=== PATIENT | female | born 1990 | race Caucasian/White ===

== ENCOUNTER 2021-09-02 13:49 | Outpatient (CLI) | payer OTHER, SELFPAY ==
--- NOTE | 2021-09-02 14:00 | CRLHL7_ITS ---
For Patients: As a result of the Century Cures Act, medical imaging exams and procedure reports are released immediately into your electronic medical record. You may view this report before your referring provider. If you have questions, please contact your health care provider. INDICATION: 2nd trimester anatomical survey. TECHNIQUE: Ultrasound OB pelvis transabdominal. Real-time rico-scale imaging of the fetus was performed as well as color Doppler and spectral Doppler analysis of the umbilical artery. COMPARISON: None. FINDINGS: Sonographic imaging demonstrates a single living intrauterine gestation. Fetus demonstrates a regular cardiac rate of 150 beats per minute. Fetus has a breech orientation. The placenta lies posterior. Tip of the placenta is approximately 3.7 cm from the internal os. Three-vessel cord with central placental insertion. Amniotic fluid volume appears normal. Single deepest pocket measures 4 cm. Closed cervix length 4.8 cm. Biometry: Biparietal diameter: 4.4 cm, 19 week 2 day, 28th percentile. Head circumference: 16.9 cm, 19 week 4 day, 29th percentile. Abdominal circumference: 15.5 cm, 20 week 5 day, 72 percentile. Femoral length: 3.4 cm, 20 week 4 day, 68th percentile. The composite ultrasound gestational age is calculated at 20 week 2 day with an estimated sonographic due date of 01/18/2022. The weight is estimated at 80th grams, the percentile. On anatomic survey, there is a normal appearance of the cerebral ventricles, cisterna magna and cerebellum. The nose, lips, and facial profile appear normal. The cervical, thoracic and lumbar spines are well visualized and appear normal. There is a normal four-chamber heart and the left and right ventricular outflow tracts appear normal. diaphragm, stomach, kidneys and bladder appear normal. There is a normal three-vessel cord and cord insertion site. The four extremities appear normal. IMPRESSION: 1.Single viable intrauterine . 2.No intrinsic abnormalities noted on anatomic survey. Dictated by Rosalino Rosas MD @ 09/02/2021 4:24:49 PM (Electronically Signed)
== END 2021-09-02 13:50 | disposition home or self-care (01) ==
LOC: US 13:50
PROVIDERS: Visit Provider Advanced Practice Midwife
DX: Z34.92 Encounter for supervision of normal pregnancy, unspecified, second trimester (principal); Z3A.20 20 weeks gestation of pregnancy
CPT/HCPCS: 76805

== ENCOUNTER 2021-10-28 16:23 | Outpatient (CLI) | payer OTHER, SELFPAY ==
[2021-10-29 17:54] LABS: Rapid Plasma Reagin (RPR) Non Reactive (Non Reactive)
== END 2021-10-28 16:24 | disposition home or self-care (01) ==
PROVIDERS: Visit Provider Advanced Practice Midwife
DX: Z34.90 Encounter for supervision of normal pregnancy, unspecified, unspecified trimester (principal)
CPT/HCPCS: 86592

== ENCOUNTER 2021-12-23 15:17 | Outpatient (CLI) | payer OTHER, SELFPAY ==
[2021-12-24 15:32] LABS: Strep B DNA Probe NEGATIVE (Negative)
[2021-12-25 09:08] LABS: Strep B Pen/Amox Allergy No
== END 2021-12-23 15:18 | disposition home or self-care (01) ==
LOC: NFLDREF 15:17
PROVIDERS: Visit Provider Advanced Practice Midwife
DX: Z34.83 Encounter for supervision of other normal pregnancy, third trimester (principal); Z3A.35 35 weeks gestation of pregnancy
CPT/HCPCS: 87081; 87653

== ENCOUNTER 2022-01-11 21:35 | Inpatient (IN) | payer OTHER, SELFPAY ==
[2022-01-11 21:11] LABS: Amnisure Rom* POSITIVE
[2022-01-11 21:21] VITALS: BP 141/80; PULSE 78; PULSE 81; O2SAT 97
[2022-01-11 21:22] VITALS: BP 129/79; PULSE 85
[2022-01-11 21:23] VITALS: BP 129/79; PULSE 82; RESP 18; TEMP 37.1; O2SAT 97
--- NOTE | 2022-01-11 22:22 | W.PM.LDBA ---
Subjective History of Present Illness Date Seen: 01/11/22 Narrative: She is a 31 year old at 38 4/7 weeks gestation. Patient is being admitted to Labor and Delivery for prelabor rupture of membranes of clear fluid that occurred at 1915 this evening. Her full history and physical was dictated by ADITI Guillaume on 01/08/2022. Please see this for details. OB Problem List 1. Pap due OB - H&P: Exam Physical Exam: Vital signs: Temp Pulse Resp BP Pulse Ox 98.7 F 82 18 129/79 97 01/11/22 21:23 01/11/22 21:23 01/11/22 21:23 01/11/22 21:23 01/11/22 21:23 Narrative: Vitals Reviewed? Psychiatric:? Alert and oriented x3? HEENT:? Normocephalic, atraumatic? Neck:? Supple?? Lungs:? Clear to auscultation bilaterally? Heart:? Regular rate and rhythm, no murmur, rub or gallop? Abdomen:? Soft, nontender, and gravid. Vertex by Bryan's, confirmed with cervical exam.? Extremities:? No edema or erythema? Detailed Labor and Delivery Exam: Patient Gravid: yes Cervix position: posterior Contraction frequency (min): 8 (5-8 and irregular) Tachysystole: No Contraction intensity: Mild Comments: SVE attempted by RN, very posterior and difficulty to palpate. Patient declined recheck. Fetus (Single): Heart Rate Baseline: 130 Monitor Accelerations: Present Monitor Decelerations: None Residential Variability: Moderate (6-25) OB - Problem Based A/P Additional Plan (1) PROM (premature rupture of membranes): Status: Acute (2) Pain during labor: Status: Acute Plan ASSESSMENT:? 31 at 38 4/7 weeks gestation? complicated by:?uncomplicated Labor type: Spontaneous, Early labor? Category 1 FHR pattern.?? Labor complicated by: PROM? GBS negative? ? PLAN:? 1. Routine intrapartum cares as ordered. Reviewed PROM and discussed options for management including IV pitocins and expectant management. Patient prefers expectant management. Discussed recommendation of 12 hour of expectant management and readdressing option of Pitocin if labor has not progressed. Patient agreeable to this plan. 2. Monitoring per policy, intermittent? 3. Planning unmedicated . Desires water . Consent signed. Hep C negative. Candidate for analgesia of choice.?? 4. Patient encouraged to reposition and ambulate to promote physiologic labor and .? 5. Anticipate ? Delivery/Labor/Induction Plan Plan: expectant management
[2022-01-11 22:49] LABS: SARS PCR* Negative SARS-CoV-2 (Negative)
[2022-01-11 22:58] VITALS: BMI 27.3
[2022-01-11 23:30] VITALS: TEMP 36.8
[2022-01-12] VITALS (17 sets, daily range): BP systolic 109–134; BP diastolic 67–87; PULSE 71–104; RESP 16–18; TEMP 36.6–36.8; O2SAT 96–99
--- NOTE | 2022-01-12 04:22 | P.OBPRC_ITS ---
Procedure Procedure Done: Global Intrapartal Events: Precipitous Labor <3 Hrs Delivery monitor: external FHT and external uterine Route of delivery: Laceration description: None Estimated blood loss (mL): 150 Anesthesia type: None Disposition: floor Narrative: The patient is a 31 year-old admitted on 01/11/2022 at 38 Weeks, 5 Days gestation for premature rupture of membranes.? Cervical exam on admission was posterior and difficult to assess. Patient declined recheck. Membranes intact in vertex presentation.? Contractions were every 5-8 minutes.? heart rate demonstrated baseline 130 bpm with moderate variability, + accelerations, - decelerations; a category 1 tracing.? SROM occurred at 1915 with clear fluid. ? Labor Analgesia:? None Waterbirth: Yes ? Pitocin:? No, declined AMTSL ? Labor onset:? 01/12/22 at 0310 ? Complete:? assumed at time of pushing, 0343 ? Pushing:? 0345 ? heart tones during second stage were reassuring with intermittent auscultation. ? Patient was admitted for premature rupture of membranes and progressed normally. SROM noted at 1915 with clear fluid. Patient arrived to Center feeling mild irregular contractions. She had planned to rest but was unable to due to increasing intensity. At about 0310 they became more intense and regular, she entered the tub shortly after. Patient was assumed complete at time of pushing at 0343. of a viable female Frederick at 0345 in kneeling position in the tub. Vertex delivered OA, compound right hand delivered with head. Instructed patient to pause before delivery of rest of the body. No nuchal cord or shoulder. Body delivered easily and without incident. was lifted out of water, then mother was assisted to reposition on her back. was passed under her leg above water before being placed on mothers mothers abdomen with a vigorous cry. Cord was clamped and cut at > 5 minutes. APGARS were 8 at one minute and 9 at five minutes respectively. Mouth was bulb suctioned. Intact placenta with a 3 vessel cord delivered spontaneously at 0404. Fundus firm. Intact perineum. QBL 150 cc. Mother and baby stable; mother plans to breastfeed. Infant weight pending. ? Placenta delivered spontaneously and complete at 0404 with a 3 vessel cord. Upon inspection, marginal cord insertion noted right along edge. Patient declined pathology and plans to take placenta home to encapsulate. ? Mother and were stable after delivery. ? Lacerations:? Intact ? Blood loss: 150 mL. Blood loss measurement type: QBL ? Sponge and needles counts are correct. Infant Infant Gender: Female presentation: vertex (Compound right hand delivered on cheek) Placental Delivery Description: Spontaneous Cord Description: 3 Vessels OB Vag Delivery Procedures Additional Procedures ECV: No Cook Catheter Insertion: No NST: No D&C: No Laceration Repair: No Tubal Ligation : No Other: No
[2022-01-12] MEDS: DOCUSATE SODIUM 100 MG CAPSULE PO (08:43)
[2022-01-13 04:28] VITALS: BP 112/70; PULSE 74; RESP 16; TEMP 36.6; O2SAT 97
[2022-01-13 07:30] VITALS: BP 109/75; PULSE 79; RESP 18; TEMP 36.5; O2SAT 97
--- NOTE | 2022-01-13 07:38 | P.DS_ITS ---
Documented by User: Regine Arceo CNM 01/13/22 07:59 DS: Providers Provider Time Seen by Provider: 07:38 Date Seen: 01/13/22 Date of admission: 01/11/22 21:35 Primary care physician: Not a Local Provider Admitting Clinician: Angie Moreno CNM Attending Physician on discharge: Ira Carmen CNM Date of Discharge: 01/13/22 DS: Diagnosis Discharge Diagnosis (1) state: Status: Acute (2) Lactating mother: Status: Acute Exam Narrative: Exam Narrative: VSS, afebrile GENERAL APPEARANCE: ?normal affect, alert, no distress MOOD: ?appropriate HEENT: normocephalic, neck supple, full ROM CHEST: ?Symmetrical chest wall movement. ?Normal respiratory effort. ?Clear to auscultation HEART: ?regular rate and rhythm ABDOMEN: ?soft, non-tender. Uterine fundus is firm, at Umbilicus, Midline and is appropriate for the stage of recovery. ?Bowel sounds present. PERINEUM: ?no edema of the perineum, there is a no laceration EXTREMITIES: ?normal and no edema Const: Vital Signs, click to edit/add: Vital Signs - 24 hr 01/12/22 08:30 01/12/22 13:00 01/12/22 16:53 Temperature 98.2 F 97.9 F 97.9 F Pulse Rate [Pulse Oximeter] 80 104 H 87 Respiratory Rate 16 16 16 Blood Pressure [Le ft Arm] 125/70 119/80 130/70 Pulse Oximetry 96 97 97 Oxygen Delivery Me thod Room Air Room Air Room Air 01/12/22 19:48 01/12/22 23:54 01/13/22 04:28 Temperature 98.1 F 97.9 F 97.8 F Pulse Rate [Pulse Oximeter] 81 74 74 Respiratory Rate 16 16 16 Blood Pressure [Le ft Arm] 123/72 109/70 112/70 Pulse Oximetry 97 97 97 Oxygen Delivery Me thod Room Air Room Air Room Air OB - DS: Summary Hospital Course Hospital Course: Boy is a 31 y.o. who was admitted to L & D for SROM. ?She had an uncomplicated NVD in the tub. The patient feels well. ?The pain is well controlled without medications. ?She has no new complaints. ?She is breast feeding and reports things are going well.? the patient has done well.? Vitals have been stable.? She has remained afebrile.? Has a good appetite, is tolerating a general diet. ?She is voiding without difficulty.? She is passing gas and has had a bowel movement.? She is ambulating and denies any dizziness.? Has Small amount of rubra lochia. She is planning condoms for prevention. Peripartum Data Infant delivery method: Vaginal Laceration description: None complications: none Gender: Female Discharge Plan: Home Time Spent with Patient Time attestation: Total time spent providing and/or coordinating discharge services: Discharge Plan Discharge Disposition: Home, Self-Care Date of Admission: 01/11/22 21:35 Attending Provider on Discharge: Ira Carmen Primary Care Provider: Provider,Not a Local Condition: Stable Anticipated Discharge Date/Time: 01/13/22 07:47 Discharge Medications: Continued Classic 28 mg iron- 800 mcg tablet 1 tab PO DAILY PRN Adult 50 Plus Probiotic 4 billion cell capsule 1 cell PO ONCE cholecalciferol (vitamin D3) 25 mcg (1,000 unit) capsule 25 mcg PO QDAY Fish Oil 340-1,000 mg capsule 1 cap PO QDAY calcium carbonate [Calcium 600] 600 mg calcium (1,500 mg) tablet 1,200 mg PO QDAY alfalfa 250 mg tablet 3,000 mg PO QDAY Discharge Orders: Discharge Order (Routine); Ordered 01/13/22 Ordered By: Regine Arceo Additional Instructions: [facility] 2 weeks and 6 weeks Activity Level: Activity as Tolerated Discharge Diet: Regular Follow Up Appointments: [facility] [Provider Group] Forms: [facility] Info Instructions Documented by User: Ira Carmen CNM 01/13/22 07:43 DS: Diagnosis Discharge Diagnosis (1) state: Status: Acute (2) Lactating mother: Status: Acute Exam Narrative: Exam Narrative: VSS, afebrile GENERAL APPEARANCE: ?normal affect, alert, no distress MOOD: ?appropriate HEENT: normocephalic, neck supple, full ROM CHEST: ?Symmetrical chest wall movement. ?Normal respiratory effort. ?Clear to auscultation HEART: ?regular rate and rhythm ABDOMEN: ?soft, non-tender. Uterine fundus is firm, [] Umbilicus, Midline and is appropriate for the stage of recovery. ?Bowel sounds present. PERINEUM: ?[mild] edema of the perineum, there is a [] degree laceration that is healing well. EXTREMITIES: ?normal and [no] edema Const: Documenting provider has reviewed patient's vital signs: yes OB - DS: Summary Hospital Course Hospital Course: [] is a [] y.o. who was admitted to L & D for []. ?She had an [uncomplicated] NVD The patient feels well. ?The pain is well controlled with current medications. ?She has no new complaints. ?She is [breast feeding] and reports things are [] going well.? the patient has done well.? Vitals have been stable.? She has remained afebrile.? Has a good appetite, is tolerating a general diet. ?She is voiding without difficulty.? She is passing gas and has [not] had a bowel movement.? She is ambulating and denies any dizziness.? Has [Small] amount of rubra lochia. She is planning [] for prevention. Status at Discharge Functional status at discharge: independent ambulation Overall status at discharge: patient is progressing back to baseline Time Spent with Patient Time spent: Less than 30 minutes Discharge Plan Discharge Disposition: Home, Self-Care Date of Admission: 01/11/22 21:35 Attending Provider on Discharge: Ira Carmen Primary Care Provider: Provider,Not a Local Condition: Stable Anticipated Discharge Date/Time: 01/13/22 07:47 Discharge Medications: Continued Classic 28 mg iron- 800 mcg tablet 1 tab PO DAILY PRN Adult 50 Plus Probiotic 4 billion cell capsule 1 cell PO ONCE cholecalciferol (vitamin D3) 25 mcg (1,000 unit) capsule 25 mcg PO QDAY Fish Oil 340-1,000 mg capsule 1 cap PO QDAY calcium carbonate [Calcium 600] 600 mg calcium (1,500 mg) tablet 1,200 mg PO QDAY alfalfa 250 mg tablet 3,000 mg PO QDAY Discharge Orders: Discharge Order (Routine); Ordered 01/13/22 Ordered By: Regine Arceo Additional Instructions: [facility] in 2 weeks and 6 weeks Activity Level: Activity as Tolerated Discharge Diet: Regular Follow Up Appointments: [facility] [Provider Group] Forms: MyHealth Info Instructions
== END 2022-01-13 09:45 | disposition home or self-care (01) | DRG 807 ==
LOC: OB OUT 21:36 → OB 21:36
PROVIDERS: Admitting Provider Advanced Practice Midwife; Visit Provider Advanced Practice Midwife
DX: O42.02 Full-term premature rupture of membranes, onset of labor within 24 hours of rupture (principal); Z37.0 Single live birth; Z3A.38 38 weeks gestation of pregnancy
CPT/HCPCS: 84112; 87635; A9270